=== PATIENT | male | born 1950 | race Caucasian/White ===

== ENCOUNTER 2022-02-11 05:19 | Emergency (ER) | payer OTHER ==
[~2022-02-11] VITALS: Ht 175.3 cm; Wt 92.3 kg
[2022-02-11] MEDS ORDERED: 0.9% SODIUM CHLORIDE 10 ML SYRINGE IVP PRN ×2 (05:30→06:00)
[2022-02-11] MEDS ORDERED: SODIUM CHLORIDE 0.9% 2,750 ML IV ONE (06:00)
[2022-02-11 06:03] LABS: COVID AG,FIA SOURCE NASAL SWAB
[2022-02-11] MEDS ORDERED: INSNPH SQ (06:07)
[2022-02-11] MEDS ORDERED: CLOP75TA60 PO (06:07)
[2022-02-11] MEDS ORDERED: FLUO20SO2 PO (06:07)
[2022-02-11] MEDS ORDERED: ATOR40TA28 PO (06:07)
[2022-02-11] MEDS ORDERED: MIRT-89 PO (06:07)
[2022-02-11] MEDS ORDERED: LEVO75 PO (06:07)
[2022-02-11] MEDS ORDERED: ASPI-1444 PO (06:07)
[2022-02-11] MEDS ORDERED: ALBU8HFA IH (06:07)
[2022-02-11] MEDS ORDERED: AMLO-258 PO (06:07)
[2022-02-11] MEDS ORDERED: PANT-31 PO (06:07)
[2022-02-11] MEDS ORDERED: SENN8.8S18 PO (06:07)
[2022-02-11] MEDS ORDERED: LABE100T51 PO (06:07)
[2022-02-11] MEDS ORDERED: LEVO100 PO (06:07)
[2022-02-11 06:12] LABS: BASOPHILS % (AUTO) 0.1 % (0.0-2.0); EOSINOPHILS % (AUTO) 0 % (1.0-6.0); HEMOGLOBIN 12.7 g/dL (13.5-17.5); LYMPHOCYTES # (AUTO) 1.3 K/uL (1.0-4.8); LYMPHOCYTES % (AUTO) 9.5 % (22.0-44.0); MEAN CORPUSCULAR HEMOGLOBIN 27.1 pg (26.0-34.0); MEAN CORPUSCULAR HGB CONC 33.4 G/dL (31.0-37.0); MEAN CORPUSCULAR VOLUME 81 fL (80-100); MONOCYTES # (AUTO) 0.6 K/uL (0.1-1.0); MONOCYTES % (AUTO) 4.4 % (2.0-9.0); NEUTROPHILS # (AUTO) 11.5 K/uL (1.8-7.7); PLATELET COUNT (AUTO) 129 K/uL (150-450); RED BLOOD CELL COUNT(AUTO) 4.69 MIL/uL (4.50-5.90); RED CELL DISTRIBUTION WIDTH 14.3 % (11.5-14.5)
[2022-02-11 06:14] LABS: APPEARANCE,URINE TURBID (CLEAR); BILIRUBIN,URINE NEGATIVE (NEGATIVE); GLUCOSE, URINE (UA) 150-200 mg/dL (NEGATIVE); KETONES,URINE TRACE mg/dL (NEGATIVE); LEUKOCYTE ESTERASE ,URINE LARGE (NEGATIVE); NITRATE,URINE POSITIVE (NEGATIVE); OCCULT BLOOD,URINE SMALL (NEGATIVE); PH,URINE 5.5 (5.0-8.0); PROTEIN,URINE 300-600,SEE CONFIRM mg/dL (NEGATIVE); UROBILINOGEN,URINE <=1.0 mg/dL (<=1.0)
[2022-02-11 06:21] LABS: ANION GAP 10 mmol/L (8-16); CALCIUM, TOTAL 8.8 mg/dL (8.8-10.5); CARBON DIOXIDE 25 mmol/L (22-29); CHLORIDE 104 mmol/L (98-107); CREATININE 1.14 mg/dL (0.60-1.30); GLUCOSE,RANDOM 200 mg/dL (70-110); POTASSIUM 3.7 mmol/L (3.5-5.1); SODIUM SERUM 139 mmol/L (136-145); UREA NITROGEN, BLOOD 26 mg/dL (7-18)
[2022-02-11 06:22] LABS: GLOMERULAR FILTR. RATE CALC > 60 mL/min (>60)
[2022-02-11 06:23] LABS: INR 1.2 (0.9-1.1); PROTHROMBIN TIME 12.3 SEC (9.4-11.6)
[2022-02-11 06:24] LABS: BACTERIA,URINE Many /HPF (None Seen); RBC,URINE 0-2 /HPF (0-2); SULFOSALICYLIC ACID,URINE 1+ (Negative); YEAST,URINE Moderate /HPF (None Seen)
[2022-02-11 06:27] LABS: ALANINE AMINOTRANSFERASE 23 U/L (12-78); ALBUMIN 3.1 g/dL (3.4-5.0); ALKALINE PHOSPHATASE 95 U/L (46-116); ASPARTATE AMINOTRANSFERASE 15 U/L (15-37); BILIRUBIN,TOTAL 1.7 mg/dL (0.1-1.0); TOTAL PROTEIN, SERUM 6.1 g/dL (6.4-8.2)
[2022-02-11] MEDS ORDERED: AMPICILLIN SODIUM/SULBACTAM NA 3 GM in SODIUM CHLORIDE 0.9% 100 ML IV ONE (07:15)
[2022-02-11] MEDS ORDERED: ACETAMINOPHEN 1000 MG/ISO-OSM 100 ML IV ONE (10:30)
[2022-02-11 10:49] VITALS: BP 132/62
== END 2022-02-11 10:59 | disposition short-term general hospital (02) ==
LOC: EMS 05:19
DX: A41.9 Sepsis, unspecified organism (principal); J69.0 Pneumonitis due to inhalation of food and vomit; J96.90 Respiratory failure, unspecified, unspecified whether with hypoxia or hypercapnia; I10 Essential (primary) hypertension; E11.9 Type 2 diabetes mellitus without complications; F32.9 Major depressive disorder, single episode, unspecified; Z88.8 Allergy status to other drugs, medicaments and biological substances; Z79.899 Other long term (current) drug therapy; Z20.822 Contact with and (suspected) exposure to COVID-19
CPT/HCPCS: 99291; 96365; 70450; 96361; 96375; 87426; 80053; 81001; 82962; 83605; 83880; 84484; 85025; 85610; 85730; 87040; 36415; 87086; 87186; 71045; 93005; J0295; J7050; J0131; 81002